=== PATIENT | female | born 1995 ===

== ENCOUNTER 2023-10-02 12:42 | Emergency (ER) | payer OTHER ==
[2023-10-02 13:19] VITALS: BP 121/86; PULSE 96; RESP 18; TEMP 98.2; BMI 28.3
[2023-10-02 15:10] LABS: EPI CELLS 35 /uL (0-25.1); HYALINE CASTS 3 /uL (0-3.1); PH,URINE 6.5 (5.0-8.0); URINE APPEARANCE CLOUDY; URINE BACTERIA 5520 /uL (0-1359); URINE BILIRUBIN NEGATIVE (NEGATIVE); URINE COLOR YELLOW; URINE GLUCOSE (UA) NEGATIVE (NEGATIVE); URINE KETONE NEGATIVE (NEGATIVE); URINE LEUK ESTERASE 3+ (NEGATIVE); URINE NITRITE NEGATIVE (NEGATIVE); URINE PROTEIN TRACE (NEGATIVE); URINE RBC 15 /uL (0-23.9); URINE WBC 438 /uL (0-25.8)
[2023-10-02] MEDS ORDERED: KETOROLAC TROMETHAMINE 30 MG/1 ML VIAL ONE (15:32)
[2023-10-02] MEDS: KETOROLAC TROMETHAMINE 30 MG/1 ML VIAL IM ONE (15:36)
== END 2023-10-02 18:47 | disposition home or self-care (01) ==
LOC: JER 12:42
PROC: 3E0233Z Introduction of Anti-inflammatory into Muscle, Percutaneous Approach (ICD-10-PCS; principal; 2023-10-02)
DX: N76.0 Acute vaginitis (principal); N12 Tubulo-interstitial nephritis, not specified as acute or chronic; M54.9 Dorsalgia, unspecified; L29.2 Pruritus vulvae; R30.0 Dysuria
CPT/HCPCS: 74176-TC; 81003; 84703; 87086; 99284-25